=== PATIENT | male | born 2000 | race African-American/Black ===

== ENCOUNTER 2020-03-23 13:38 | Emergency (ER) | payer SELFPAY ==
[2020-03-23 14:48] VITALS: BP 121/68
--- NOTE | 2020-03-23 16:04 | ER Document Report ---
ED Neck/Back Problem - General Chief Complaint: Neck Pain < 24hrs old Stated Complaint: NECK PAIN Time Seen by Provider: 03/23/20 15:46 Mode of Arrival: Ambulatory Information source: Patient Notes: 19-year-old male no previous medical problems presents to the emergency room complaining of left-sided neck pain that radiates up to his head. Pain started on Tuesday night. He denies any head trauma or head injury. No neck injury. States he took some Aleve yesterday with some relief. Patient also had a positive COVID test on March 12 due to loss of taste and smell. He has had no known COVID exposure. He denies any shortness of breath, no difficulty breathing. Has been self continuing since he had his positive test result on March 12. Drove self to the emergency room. TRAVEL OUTSIDE OF THE [place] IN LAST 30 DAYS: No - Related Data Allergies/Adverse Reactions: No Known Allergies Allergy (Verified 03/23/20 15:49) Past Medical History - General Information source: Patient - Social History Smoking Status: Never Smoker Frequency of alcohol use: None Drug Abuse: None Family History: Reviewed & Not Pertinent Patient has homicidal ideation: No - Immunizations Immunizations up to date: Yes Hx Diphtheria, Pertussis, Tetanus Vaccination: Yes Review of Systems - Review of Systems Constitutional: No symptoms reported EENT: No symptoms reported Cardiovascular: No symptoms reported Respiratory: No symptoms reported Musculoskeletal: Muscle pain, Neck pain Skin: No symptoms reported Hematologic/Lymphatic: No symptoms reported Neurological/Psychological: Headaches -: Yes All other systems reviewed and negative Physical Exam - Vital signs Vitals: Temp 98.4 F 03/23/20 13:45 - General General appearance: Appears well, Alert In distress: None - HEENT Head: Normocephalic, Atraumatic Eyes: Normal Pupils: PERRL Ears: Normal External canal: Normal Tympanic membrane: Normal Sinus: Normal Mucous membranes: Normal Pharynx: Normal Neck: Other - Nontender to palpation over the cervical spine. There is muscle spasms palpated in the left trapezius muscle patient has full range of motion with flexion, extension as well as lateral movement to the neck.. No: Kernig's, Lymphadenopathy, Meningismus, Supple - Respiratory Respiratory status: No respiratory distress Chest status: Nontender Breath sounds: Normal Chest palpation: Normal - Cardiovascular Rhythm: Regular Heart sounds: Normal auscultation Murmur: No - Back Back: Normal, Nontender - Neurological Neuro grossly intact: Yes Cognition: Normal Orientation: AAOx4 Ivonne Coma Scale Eye Opening: Spontaneous Ivonne Coma Scale Verbal: Oriented [place] Coma Scale Motor: Obeys Commands Ivonne Coma Scale Total: 15 Speech: Normal Motor strength normal: LUE, RUE, LLE, RLE Sensory: Normal - Skin Skin Temperature: Warm Skin Moisture: Dry Skin Color: Normal Course - Re-evaluation Re-evalutation: 03/23/20 15:59 Patient with no acute trauma or injury to his neck. Neurovascularly intact. Currently denies any headache. States he did get some relief with the Aleve yesterday. Counseled on muscle spasms. Patient drove self here will discharge home on p.o. Flexeril. Counseled to use heat 20 minutes 3 times a day. Outpatient follow-up with primary care physician if not improving in 2 to 3 days. Patient was given strict return to the emergency room guidelines. Return for any new or worsening symptoms. All questions were answered. Patient verbalized understanding and agrees with plan of care. 03/23/20 15:59 03/23/20 21:40 - Vital Signs Vital signs: Temp Pulse Resp BP Pulse Ox 98.4 F 66 16 121/68 99 03/23/20 14:47 03/23/20 14:47 03/23/20 14:47 03/23/20 14:47 03/23/20 14:47 Discharge - Discharge Clinical Impression: Cervical muscle strain Qualifiers: Encounter type: initial encounter Qualified Code(s): S16.1XXA - Strain of muscle, fascia and tendon at neck level, initial encounter Condition: Stable Disposition: HOME, SELF-CARE Instructions: Muscle Relaxers ([facility]), Muscle Strain ([facility]) Additional Instructions: Take medications as prescribed. Can also take Tylenol and or Motrin as needed for pain. Heat 20 minutes 3 times a day. Follow-up with primary care physician if not improving in 2 to 3 days. Return to the emergency room for any new or worsening symptoms. Prescriptions: Cyclobenzaprine HCl [Flexeril 10 mg Tablet] 10 mg PO TIDP PRN #15 tab PRN Reason:
== END 2020-03-23 16:23 | disposition home or self-care (01) ==
LOC: ER 13:38
DX: S16.1XXA Strain of muscle, fascia and tendon at neck level, initial encounter (principal); X58.XXXA Exposure to other specified factors, initial encounter; M54.2 Cervicalgia; M62.830 Muscle spasm of back
CPT/HCPCS: 99283

== ENCOUNTER 2020-03-27 00:29 | Emergency (ER) | payer SELFPAY | END 2020-03-27 06:36 | disposition left against medical advice (07) | LOC: ER 00:29 | DX: Z53.21 Procedure and treatment not carried out due to patient leaving prior to being seen by health care provider (principal); M54.2 Cervicalgia; R51 Headache ==